=== PATIENT | male | born 1940 | race African-American/Black ===

== ENCOUNTER 2019-05-08 06:57 | Day surgery (SDC) | payer OTHER ==
[2019-05-08 07:41] VITALS: BMI 26.3
[2019-05-08 09:35] VITALS: TEMP 98.2
[2019-05-08 10:24] VITALS: BP 161/90; PULSE 72
--- NOTE | 2019-05-11 16:53 | PATH ---
Surgical Pathology Report Patient Name: DEVI RUIZ [facility]. Rec. #: [id number] /Age/Gender: 1940 (Age: 79) / M Account: [id number] Location: [facility]-ENDOSCOPY Taken: 05/08/2019 Received: 05/08/2019 Reported: 05/11/2019 Physicians: Malorie Arevalo M.D. Specimen(s) Received A: 2ND PORTION DUODENUM AND DUODENAL BULB B: ANTRUM C: RIGHT COLON POLYP Clinical History Occult GI bleed, anemia Postoperative diagnosis: Atrophic gastritis, colon polyp, melanosis coli Final Diagnosis A. SECOND PORTION OF DUODENUM AND BULB, BIOPSY: DUODENAL MUCOSA WITH NO SIGNIFICANT PATHOLOGIC CHANGE. NO HISTOLOGIC EVIDENCE OF INTRAEPITHELIAL LYMPHOCYTOSIS. B. ANTRUM, BIOPSY: GASTRIC MUCOSA WITH ACTIVE CHRONIC GASTRITIS AND INTESTINAL METAPLASIA. IMMUNOSTAIN FOR H. PYLORI IS POSITIVE. C. RIGHT COLON POLYP, BIOPSY: BENIGN COLONIC MUCOSA WITH INCREASED PIGMENTED MACROPHAGES IN THE LAMINA PROPRIA. NEGATIVE FOR ADENOMATOUS CHANGE. Electronically Signed Jessie Zhong M.D. Gross Description A. Received in formalin, labeled "biopsy second portion of duodenum and duodenal bulb" are 3 pruitt, irregular portions of soft tissue ranging from 0.3-0.4 cm. in greatest dimension. The specimens are submitted in toto in one cassette. B. Received in formalin, labeled "biopsy antrum" are 4 pruitt, irregular portions of soft tissue ranging from 0.2-0.5 cm. in greatest dimension. The specimens are submitted in toto in one cassette. C. Received in formalin, labeled "biopsy right colon polyp" is a pruitt, irregular portion of soft tissue measuring 0.1 cm. in greatest dimension. The specimen is submitted in toto in one cassette. /05/08/2019 saudi05/08/2019
== END 2019-05-08 10:31 | disposition home or self-care (01) ==
LOC: JASU-ENDO 06:57
PROVIDERS: ATTEND Internal Medicine Gastroenterology
PROC: 0DB98ZX Excision of Duodenum, Via Natural or Artificial Opening Endoscopic, Diagnostic (ICD-10-PCS; 2019-05-08)
PROC: 0DB68ZX Excision of Stomach, Via Natural or Artificial Opening Endoscopic, Diagnostic (ICD-10-PCS; 2019-05-08)
PROC: 0DBK8ZX Excision of Ascending Colon, Via Natural or Artificial Opening Endoscopic, Diagnostic (ICD-10-PCS; principal; 2019-05-08 09:15)
DX: Z12.11 Encounter for screening for malignant neoplasm of colon (principal); D64.9 Anemia, unspecified; D12.2 Benign neoplasm of ascending colon; K63.89 Other specified diseases of intestine; K64.8 Other hemorrhoids; K29.50 Unspecified chronic gastritis without bleeding; E11.9 Type 2 diabetes mellitus without complications; Z79.84 Long term (current) use of oral hypoglycemic drugs
CPT/HCPCS: 88305-TC; 88342-TC